=== PATIENT | male | born 1955 | race Caucasian/White ===

== ENCOUNTER 2024-07-14 07:43 | Day surgery (SDC) | payer OTHER ==
[~2024-07-14] VITALS: Ht 175.3 cm; Wt 71.8 kg
[~2024-07-14 07:43] MED LIST: CHOLESTYRAMINE P4 GM PO; FEOSOL325 MG PO; IBLOOD GLUCOSE TEST STRIP 1 EA TEST VI PRN; LACTATED RINGER'S 1,000 ML IV SCH; LIDOCAINE HCL 1% 5 ML SDV INJ ONE; LOPERAMIDE2 MG PO; MIDAZOLAM HCL 5 MG/5 ML VIAL IV PRN; MULTI VITAMIN1 EACH PO; VITAMIN D250 MCG PO; ZINC50 M2 PO; fentaNYL citrate 100 MCG/2 ML VIAL IV PRN
[2024-07-14 08:00] VITALS: BP 143/79
[2024-07-14] MEDS ORDERED: MIDAZOLAM HCL 5 MG/5 ML VIAL ONE (08:18)
[2024-07-14] MEDS ORDERED: fentaNYL citrate 100 MCG/2 ML VIAL ONE (08:19)
--- NOTE | 2024-07-14 09:40 | NUR ---
07/14/24 0940 Lashell Andrews 0915 PT ARRIVED IN PACU SLEEPY WITH NO C/O'S. ABD SOFT. 924 AWAKENS TO VERBAL STIMULI AND TAKES SIPS OF WATER, THEN FALLS BACK TO SLEEP. 939 RESTING. REU.
[2024-07-14 09:47] VITALS: BP 131/75
--- NOTE | 2024-07-14 16:06 | OR ---
[facility] [address], [place] [address] Signed DATE OF OPERATION: 07/14/2024 SURGEON: Santiago Romero MD PREOPERATIVE DIAGNOSES: 1. History of fistulizing Crohn disease starting late 40s. 2. Laparotomy x2 requiring small bowel and large bowel resections on both occasions. 3. Chronic intermittent anemia. 4. Possible colonic polyp in 2010. POSTOPERATIVE DIAGNOSES: 1. Mild diffuse gastritis. 2. 4 mm polyp at 7 cm in the rectum. 3. Minimal sigmoid diverticulosis. 4. Ileocolonic end-to-side anastomosis at 110 cm. 5. 4 mm polyp at 5 cm in the rectum. 6. Left perianal scar tissue. 7. Colonic length 115 cm. PROCEDURES: 1. EGD with CLOtest and biopsies of the duodenum, pyloric bulb and antrum. 2. Colonoscopy without biopsies. ESTIMATED BLOOD LOSS: None. INDICATIONS: Reyna is a 68-year-old gentleman, who spent most of his adult life in the . He helped build dams. In his late 40s, he was having abdominal symptoms and no one in the could figure that out. He was discharged and continued with the [employer] and continued to help build dams. Within a few years of being discharged, they figured out he had fistulizing Crohn disease. He is describing two separate laparotomies. He insists that on both occasions he had both large bowel and small bowel resected. He also has chronic intermittent anemia for which he takes iron tablets. He is quite convinced he had a colon polyp removed in 2010. He has now moved here to [place], [place]. He continues with the [facility] in [place], [place]. He also discontinued all processed foods and said he has lost a significant amount of weight and his abdomen feels much better. 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 He is quite certain Dr. took out polyps in 2010. He came to the office with Electronically Signed By: SANTIAGO ROMERO MD 07/14/24 1606 PATIENT NAME: REYNA SOOD OPERATIVE REPORT DATE OF : 53 REPORT #: [id number] PHYSICIAN: SANTIAGO ROMERO MD PCP: GERALDO AMBROSE MD REPORT IS CONFIDENTIAL AND NOT TO BE RELEASED WITHOUT AUTHORIZATION [facility] [address] [place], [place] [address] Signed his . He was quite convinced the polyp was nonmalignant. He said the colon resection was in 1986 and then in 2005. His last colonoscopy was in 2018 in [place], [place]. In the office, I had given him brochures on both upper and lower endoscopy. We reviewed those together. There is risk including, but not limited to gas bloating, crampy abdominal pain, bleeding, perforation requiring surgery, and missed diagnosis. He was quite excited to try our MiraLAX and Gatorade prep along with the Dulcolax tablets. He said that was much better than the gallon jug. He also understands the need for IV conscious sedation. He knows an adult person has to take him home afterwards. He had expressed understanding and wished to proceed. PROCEDURE IN DETAIL: Reyna was taken into our endoscopy suite and placed in the supine semi-recumbent position. He was given a total of 8 mg of Versed and 175 mcg of fentanyl to cover both cases. The posterior oropharynx was anesthetized with Hurricaine spray. A bite block was utilized for the upper endoscopy. The adult gastroscope had been introduced. The vocal cords and arytenoids were unremarkable. The scope passed quite readily out into the duodenum. The duodenal and pyloric channel appeared quite healthy. We went ahead and took biopsies from the duodenum and pyloric channel because of the history of Crohn disease and anemia. In the stomach, he had mild diffuse superficial erythematous changes. Most likely this is just mild gastritis. We went ahead and took a biopsy of the antrum for CLOtest as well as pathologic review. Upon retroflexion of the scope, there is no hiatal hernia. The scope was withdrawn up through the area of the GE junction, which was compliant without stricture. The Z-line is mostly intact. There was no Cox's mucosa and no distal esophagitis. The Z-line is about 42 cm from his incisors. The distal, middle and upper esophagus were unremarkable. After this, the gas was suctioned out and the gastroscope removed. Reyna tolerated the upper endoscopy quite well. Reyna was rotated into the left lateral decubitus position. He was maintained on IV sedation with the Versed and fentanyl. He has some indurated scarred tissue on the left side of his anus. It looks like he probably had incision and drainage of a fistula or perianal abscess. Currently, no evidence of any fistula tracts. He has good sphincter tone. His sphincter muscles are intact circumferentially. There were no masses. His prostate was not specifically examined today. The adult colonoscope was introduced and advanced under direct visualization of the camera. We made it up quite easily to 115 cm. We saw what might be the appendiceal orifice, although we did not see the classic stockbridge's foot. We did not see the classic ileocecal valve. It took a few minutes watching this area as the bowel contracted and sure enough we saw a dimpled area on the right and that turned out to be his end-to-side ileocolonic anastomosis. We could easily see the difference between the small bowel mucosa and the colonic mucosa. He had two tiny polyps on the side of that anastomosis, which we removed with the help of hot biopsy forceps. Again, we took pictures throughout for photodocumentation. The scope Electronically Signed By: SANTIAGO ROMERO MD 07/14/24 1606 PATIENT NAME: REYNA SOOD OPERATIVE REPORT DATE OF : 53 REPORT #: [id number] PHYSICIAN: SANTIAGO ROMERO MD PCP: GERALDO AMBROSE MD REPORT IS CONFIDENTIAL AND NOT TO BE RELEASED WITHOUT AUTHORIZATION [facility] [address] [place], [place] [address] Signed was then slowly withdrawn. He does have some diverticula in the left and sigmoid colon. They were small to moderate in size, few in number and scattered about. He had an additional polyp just above the anal canal at about 5 cm. Upon retroflexion of the scope, really he has no internal hemorrhoid tissue. I could not see any surgical scar tissue either. After this, the gas was suctioned out and the colonoscope removed. Reyna tolerated his procedure quite well. RECOMMENDATIONS: I will see Reyna back in my office in 7 to 14 days to review his results. Santiago Romero MD ALB/BRENDAL /[id number] cc: Santiago Romero MD [facility] in [facility] Copies: SANTIAGO ROMERO MD ~ Electronically Signed By: SANTIAGO ROMERO MD 07/14/24 1606 PATIENT NAME: REYNA SOOD OPERATIVE REPORT DATE OF : 53 REPORT #: [id number] PHYSICIAN: SANTIAGO ROMERO MD PCP: GERALDO AMBROSE MD REPORT IS CONFIDENTIAL AND NOT TO BE RELEASED WITHOUT AUTHORIZATION
--- NOTE | 2024-07-17 12:46 | PATH ---
[facility] [address] [facility] [place], [place] [address] Signed SPECIMEN(S): A DUODENAL BIOPSY SPECIMEN(S): B PYLORIC BIOPSY SPECIMEN(S): C ANTRUM BIOPSY SPECIMEN(S): D RECTAL POLYP, 7 CM SPECIMEN(S): E PROXIMAL ASCENDING POLYP SPECIMEN(S): F RECTAL POLYP, 5 CM SPECIMEN SOURCE: A. DUODENAL BIOPSY B. PYLORIC BIOPSY C. ANTRUM BIOPSY D. RECTAL POLYP, 7 CM E. PROXIMAL ASCENDING POLYP F. RECTAL POLYP, 5 CM CLINICAL HISTORY: Crohn's disease. Colon polyps. History of bowel resection. Anemia. FINAL PATHOLOGIC DIAGNOSIS: A. Duodenum, biopsy: - Duodenal mucosa with no significant pathologic changes B. Pylorus, biopsy: - Duodenal mucosa with no significant pathologic changes C. Stomach, antrum, biopsy: - Gastric antral mucosa with no significant pathologic changes - Negative for Helicobacter pylori with HE stains D. Rectum, 7 cm, polypectomy: - Hyperplastic polyp E. Colon, proximal ascending, polypectomy: - Colonic mucosa with no significant pathologic changes F. Rectum, 5 cm, polypectomy: - Hyperplastic polyp BRP MICROSCOPIC EXAMINATION: Histologic sections of all submitted blocks are examined by light microscopy. These findings, together with the gross examination, support the pathologic diagnosis. GROSS DESCRIPTION: A. The specimen, labeled and designated "Clayton Sood, duodenal biopsy," is received PATIENT NAME: REYNA SOOD PATHOLOGY DATE OF : 53 REPORT #: [id number] PHYSICIAN: STEPHANIE BHARDWAJ PCP: GERALDO AMBROSE MD REPORT IS CONFIDENTIAL AND NOT TO BE RELEASED WITHOUT AUTHORIZATION [facility] [address] [place], [place] [address] Signed in formalin and consists of one burgos soft tissue fragment, 0.5 cm. Entirely submitted in (A1). B. The specimen, labeled and designated "Hay, L, pyloric biopsy," is received in formalin and consists of one burgos soft tissue fragment, 0.4 cm. Entirely submitted in (B1). C. The specimen, labeled and designated "Hay, L, antrum biopsy," is received in formalin and consists of one burgos soft tissue fragment, 0.7 cm. Entirely submitted in (C1). D. The specimen, labeled and designated "Hay, L, rectal polyp, 7 cm," is received in formalin and consists of one burgos soft tissue fragment, 0.5 cm. Entirely submitted in (D1). E. The specimen, labeled and designated "Hay, L, proximal ascending polyp," is received in formalin and consists of three burgos soft tissue fragments, ranging from 0.2-0.4 cm. Entirely submitted in (E1). F. The specimen, labeled and designated "Hay, L, rectal polyp, 5 cm," is received in formalin and consists of one burgos soft tissue fragment, 0.5 cm. Entirely submitted in (F1). HS (under the direct supervision of a pathologist) The Gross Description was prepared using a voice recognition system. The report was reviewed for accuracy; however, sound-alike word errors, addition and/or deletions may occur. If there is any question about this report, please contact Client Services. ADDITIONAL NOTES: Immunohistochemical and/or in situ hybridization studies if performed in this case included appropriate positive controls that reacted as expected. This test was developed and its performance characteristics determined by [facility]. It has not been cleared or approved by the U.S. Food and Drug Administration. The FDA has determined that such clearance or approval is not necessary. This test is used for clinical purposes. It should not be regarded as investigational or for research. [facility] is certified under the Clinical Laboratory Improvement Amendments of 1988 (CLIA) as qualified to perform high complexity clinical laboratory testing. PERFORMING LABORATORY: Technical component was performed by [facility], [address] [place] [id number] (CLIA# [id number]). Professional interpretation was performed by [facility], PATIENT NAME: REYNA SOOD PATHOLOGY DATE OF : 53 REPORT #: [id number] PHYSICIAN: ELIELNational Banana LASHAE PCP: GERALDO AMBROSE MD REPORT IS CONFIDENTIAL AND NOT TO BE RELEASED WITHOUT AUTHORIZATION [facility] [address] [address] Signed [address] [facility] [place] [address] (CLIA# [id number]). Diagnostician: Des Garcia MD Pathologist Electronically Signed 07/17/2024 Copies: ~ PATIENT NAME: REYNA SOOD PATHOLOGY DATE OF : 53 REPORT #: [id number] PHYSICIAN: STEPHANIE BHARDWAJ PCP: GERALDO AMBROSE MD REPORT IS CONFIDENTIAL AND NOT TO BE RELEASED WITHOUT AUTHORIZATION
== END 2024-07-14 09:55 | disposition home or self-care (01) ==
LOC: DS 07:43
PROVIDERS: ATTEND Colon & Rectal Surgery
PROC: 0DBE8ZZ Excision of Large Intestine, Via Natural or Artificial Opening Endoscopic (ICD-10-PCS; 2024-07-14)
PROC: 0DB98ZX Excision of Duodenum, Via Natural or Artificial Opening Endoscopic, Diagnostic (ICD-10-PCS; principal; 2024-07-14 08:15)
PROC: 0DB68ZX Excision of Stomach, Via Natural or Artificial Opening Endoscopic, Diagnostic (ICD-10-PCS; 2024-07-14 08:15)
DX: K63.5 Polyp of colon (principal); K62.1 Rectal polyp; K29.70 Gastritis, unspecified, without bleeding; K57.30 Diverticulosis of large intestine without perforation or abscess without bleeding; Z98.0 Intestinal bypass and anastomosis status; Z90.49 Acquired absence of other specified parts of digestive tract; L90.5 Scar conditions and fibrosis of skin; D64.9 Anemia, unspecified; E78.5 Hyperlipidemia, unspecified; J44.9 Chronic obstructive pulmonary disease, unspecified; K50.90 Crohn's disease, unspecified, without complications; Z86.010 Personal history of colon polyps; Z79.899 Other long term (current) drug therapy
CPT/HCPCS: 36415; 87077; 88305; 99153; G0500; J2250; J3010; J7121